=== PATIENT | male | born 1975 | race Caucasian/White ===

== ENCOUNTER 2022-08-14 11:03 | Day surgery (SDC) | payer OTHER ==
[~2022-08-14] VITALS: Ht 180.3 cm; Wt 83.2 kg
[2022-08-14] MEDS ORDERED: CARB200 (12:06)
[2022-08-14] MEDS ORDERED: ACET500 (12:06)
--- NOTE | 2022-08-14 12:47 | NUR ---
08/14/22 1247 KAILEE VARGAS PROCEDURE NOTE. IN PRE OP IT WAS NOTED PT WAS BRADYCARDIC. HR 48, CONSULTED DR. ADLER, AND GLYCOPYRROLATE 0.2 MG GIVEN AT START OF CASE FOR LOW HR. PT EDUCATED THIS MEDICATION CAN CAUSE DRY MOUTH
== END 2022-08-14 13:12 | disposition home or self-care (01) ==
LOC: ORSCSDS 11:03
PROVIDERS: Internal Medicine Gastroenterology
PROC: 0DJD8ZZ Inspection of Lower Intestinal Tract, Via Natural or Artificial Opening Endoscopic (ICD-10-PCS; principal; 2022-08-14 12:45)
DX: R10.32 Left lower quadrant pain (principal); K64.4 Residual hemorrhoidal skin tags; R14.0 Abdominal distension (gaseous); Z79.899 Other long term (current) drug therapy
CPT/HCPCS: J2704; J7120